=== PATIENT | female | born 1955 | race Caucasian/White ===

== ENCOUNTER → 2020-05-22 | Outpatient (CLI) | payer MEDICAID ==
[~2020-05-22] MED LIST: ASPI-1497 PO; FURO40TA5 PO; LIP40 PO; POTA20TA12 PO; SILD25TA9 PO
== END | disposition home or self-care (01) ==
LOC: LAB 13:38
PROVIDERS: ATTEND Internal Medicine Cardiovascular Disease
DX: Z20.828 Contact with and (suspected) exposure to other viral communicable diseases (principal)
CPT/HCPCS: C9803; U0003

== ENCOUNTER → 2020-05-24 | Day surgery (SDC) | payer MEDICAID ==
[~2020-05-24] VITALS: Ht 149.9 cm; Wt 66.0 kg
[~2020-05-24] MED LIST changes: +ACETAMINOPHEN 325MG TABLET PO PRN; +FENTANYL CITRATE/PF 50MCG/ML 2ML VIAL ONE; +FUROSEMIDE 40MG/4ML VIAL ONE; +HEPARIN SODIUM 1,000 UNIT/1ML VIAL IV ONE; +IODIXANOL 320MG/ML 100 ML BOTTLE IV ONE; +LIDOCAINE HCL 1% 20ML VIAL (Pyxis) INJ ONE; +MIDAZOLAM HCL 2 MG/2 ML VIAL ONE; +MORPHINE SULFATE 2 MG/ML CPJ (NOT FOR IM USE) IV PRN; +NITROPRUSSIDE 50 MG in SODIUM CHLORIDE 0.9% 248 ML IV ONE; +ONDANSETRON HCL 4MG/2ML INJ IV PRN; +POTASSIUM CHLORIDE INJ 40 MEQ in DEXT 5% WATER 250 ML IV NR
[2020-05-24 08:59] LABS: HEMATOCRIT 33.7 % (36.0-48.0); HEMOGLOBIN 11.2 g/dL (12.0-16.0); MEAN CORPUSCULAR HEMOGLOBIN 29.3 pg (28.0-32.0); PLATELET 159 x1000/uL (130-400); RED BLOOD CELL COUNT 3.83 mill/uL (4.2-5.4); RED CELL DISTRIBUTION WIDTH 15.7 % (11.6-14.6)
[2020-05-24 09:07] LABS: CHLORIDE 102 mEq/L (98-107)
== END | disposition home or self-care (01) ==
LOC: CCL 07:57
PROVIDERS: ATTEND Internal Medicine Cardiovascular Disease
DX: I27.20 Pulmonary hypertension, unspecified (principal); I50.9 Heart failure, unspecified; Z79.82 Long term (current) use of aspirin; Z79.899 Other long term (current) drug therapy; Z98.890 Other specified postprocedural states; Z88.1 Allergy status to other antibiotic agents
CPT/HCPCS: 36415; 80048; 85027; 93460; C1760; C1769; C1887; C1893; J1644; J1940; J2250; J3010; J3480; J3490; J7050; J7060; Q9967

== ENCOUNTER 2020-07-12 15:26 | Emergency (ER) | payer SELFPAY ==
[~2020-07-12] VITALS: Ht 152.4 cm; Wt 66.0 kg
[~2020-07-12 15:26] MED LIST changes: -ACETAMINOPHEN 325MG TABLET PO PRN; -FENTANYL CITRATE/PF 50MCG/ML 2ML VIAL ONE; -FUROSEMIDE 40MG/4ML VIAL ONE; -HEPARIN SODIUM 1,000 UNIT/1ML VIAL IV ONE; -IODIXANOL 320MG/ML 100 ML BOTTLE IV ONE; -LIDOCAINE HCL 1% 20ML VIAL (Pyxis) INJ ONE; -MIDAZOLAM HCL 2 MG/2 ML VIAL ONE; -MORPHINE SULFATE 2 MG/ML CPJ (NOT FOR IM USE) IV PRN; -NITROPRUSSIDE 50 MG in SODIUM CHLORIDE 0.9% 248 ML IV ONE; -ONDANSETRON HCL 4MG/2ML INJ IV PRN; -POTASSIUM CHLORIDE INJ 40 MEQ in DEXT 5% WATER 250 ML IV NR
[2020-07-12 15:32] VITALS: BP 112/60
== END 2020-07-12 22:44 | disposition left against medical advice (07) ==
LOC: ER 15:26
DX: I11.0 Hypertensive heart disease with heart failure (principal); I50.9 Heart failure, unspecified; I50.43 Acute on chronic combined systolic (congestive) and diastolic (congestive) heart failure; R60.0 Localized edema; E87.70 Fluid overload, unspecified; Z79.82 Long term (current) use of aspirin; Z53.21 Procedure and treatment not carried out due to patient leaving prior to being seen by health care provider
CPT/HCPCS: 99281